=== PATIENT | female | born 2000 | race African-American/Black ===

== ENCOUNTER 2019-05-27 20:15 | Emergency (ER) | payer BC ==
[2019-05-27 20:59] VITALS: BP 130/90; PULSE 90; TEMP 98.9; BMI 23.8
[2019-05-27 20:59] LABS: HCG,QUALITATIVE URINE Negative
[2019-05-27] MEDS ORDERED: SODIUM CHLORIDE 1,000 ML IV ONE (20:59)
[2019-05-27] MEDS ORDERED: ONDANSETRON 4 MG/2 ML VIAL IVPB ONE (20:59)
--- NOTE | 2019-05-27 21:28 | PDOC ---
Documentation entered by Paco Montes SCRIBE, acting as scribe for Cassie Clark MD. Cassie Clark MD: This documentation has been prepared by the Simon bhandari Xhesika, SCRIBE, under my direction and personally reviewed by me in its entirety. I confirm that the documentation accurately reflects all work, treatment, procedures, and medical decision making performed by me. History of Present Illness - General Chief Complaint: Nausea Stated Complaint: NAUSEA History Source: Patient Exam Limitations: No Limitations - History of Present Illness Initial Comments: 05/27/19 21:10 The patient is a 18 year old female, with no significant PMH of who presents to the emergency department with 6 days of nausea and vomiting associated with diffuse epigastric pain, cold sweats, lightheadedness, and inability to tolerate PO. Patient states she went to urgent care and was advised to come to the ED for further evaluations, patients states she has been producing urine 6x per day. Patient denies fevers, chills, chest pain, SOB, or urinary symptoms. PAST SURGICAL HISTORY: no significant history FAMILY HISTORY: no pertinent history SOCIAL HISTORY: Pt lives with family and is employed. MEDICATIONS: reviewed ALLERGIES: As per nursing notes 05/27/19 21:26 Assessment plan: This is a 18-year-old female who comes in saying she is had 6 days of nausea and vomiting and no by mouth intake. However patient said she has been urinating multiple times a day and the urine is normal. Patient here in the ED does not appear to be severely dehydrated or even mildly dehydrated. As evidenced by a normal heart rate and blood pressure. Workup initiated including CBC, comp and lipase Patient given Zofran and IV fluids 05/27/19 21:52 Reevaluation patient feels better with IV fluids. Patient has normal white count and normal chemistries. Patient has normal vitals and will be discharged. Prescription for Zofran sent to her pharmacy. Past History - Past Medical History Allergies/Adverse Reactions: Allergies Allergy/AdvReac Type Severity Reaction Status Date / Time Penicillins Allergy Unknown Verified 05/27/19 20:46 Home Medications: Ambulatory Orders NK [No Known Home Medication] 05/27/19 Review of Systems - Review of Systems Able to Perform ROS?: Yes Comments:: 05/27/19 21:10 General: No fevers or chills, no weakness, no weight loss. (+) cold sweats. HEENT: No change in vision. No sore throat,. No ear pain CardioVascular: No chest pain or shortness of breath Respiratory:No cough, or wheezing. Gastrointestinal: (+) nausea, vomiting. No diarrhea or constipation, No rectal bleeding Genitourinary: No dysuria, hematuria, or frequency Musculoskeletal: (+) epigastric pain. No joint or muscle pain or swelling Neurologic: (+) lightheadedness. No headache, vertigo, dizziness or loss of consciousness Psychiatric: nor depression Skin: No rashes or easy bruising Endocrine: no increased thirst or abnormal weight change Allergic: no skin or latex allergy All other systems reviewed and normal *Physical Exam - Vital Signs Last Vital Signs Temp Pulse Resp BP Pulse Ox 98.9 F 90 15 130/90 100 05/27/19 20:43 05/27/19 20:43 05/27/19 20:43 05/27/19 20:43 05/27/19 20:43 - Physical Exam Comments: 05/27/19 21:10 : General: Well-nourished well-developed individual, no acute distress HEENT: Throat: Normal, tonsils normal, no erythema or exudate Neck: Supple, no meningeal signs, no lymphadenopathy Eyes::Pupils equal reactive and round, extraocular motion intact Chest: Nontender to palpation Cardiac: S1-S2 normal, regular rate and rhythm, no murmurs rubs or gallops Respiratory: Lungs clear to auscultation bilateral Abdomen: (+) mild epigastric tenderness. Soft, nondistended, normal bowel sounds Extremities: Warm, dry, no cyanosis, clubbing, or edema Skin: No rashes Neuro: Alert and oriented x3, nonfocal exam, grossly intact, normal gait Psych: Normal mood and affect ED Treatment Course - LABORATORY CBC & Chemistry Diagram: 05/27/19 21:30 05/27/19 21:30 - ADDITIONAL ORDERS Additional order review: Laboratory Results 05/27/19 20:50 Urine Color Yellow Urine Appearance Slightly Urine pH 6.5 Urine Protein Negative Urine Glucose (UA) Negative Urine Ketones Negative Urine Blood Negative Urine Nitrite Negative Urine Bilirubin Negative Urine Urobilinogen 0.2 Ur Leukocyte Esterase Negative Urine HCG, Qual Negative *DC/Admit/Observation/Transfer Diagnosis at time of Disposition: Nausea & vomiting Qualifiers: Vomiting type: unspecified Vomiting Intractability: non-intractable Qualified Code(s): R11.2 - Nausea with vomiting, unspecified - Discharge Dispostion Disposition: HOME Condition at time of disposition: Good Decision to Admit order: No - Referrals - Patient Instructions Additional Instructions: For nausea take Zofran 1 tablet as often as every 6-8 hours. In addition to that for the discomfort takes an antacid such as Tums or Pepcid. Return to the emergency department immediately with ANY new, persistent or worsening symptoms. Continue any medications as previously prescribed by your physician. You should follow up with your primary doctor as soon as possible regarding today's emergency department visit. . Please make sure your doctor reviews the results of your emergency evaluation. Thank you for coming to the Emergency Department today for your care. It was a pleasure to see you today. Please note that your evaluation is INCOMPLETE until you follow-up with your doctor. - Post Discharge Activity
[2019-05-27] MEDS ORDERED: ONDANSETRON 4 MG/2 ML VIAL ONE (21:30)
[2019-05-27 21:44] LABS: BASO % 1.3 % (0-2.0); EOS % 2.2 % (0-4.5); HEMATOCRIT 41.3 % (32.4-45.2); HEMOGLOBIN 13.4 GM/dl (10.7-15.3); LYMPH % 36.2 % (8-40); MCH 28.3 pg (25.7-33.7); MCHC 32.4 g/dl (32.0-36.0); MEAN CELL VOLUME 87.2 fl (80-96); MEAN PLT VOLUME 8.3 fl (7.5-11.1); MONO % 8.8 % (3.8-10.2); NEUT % 51.5 % (42.8-82.8); PLATELET COUNT 250 K/MM3 (134-434); RBC 4.74 M/mm3 (3.60-5.2); RDW 13.4 % (11.6-15.6); WHITE BLOOD COUNT 6.8 K/mm3 (4.0-10.8)
[2019-05-27 21:56] LABS: ALBUMIN 4.6 g/dl (3.4-5.0); BILIRUBIN,TOTAL 0.8 mg/dl (0.2-1); CALCIUM 9.5 mg/dl (8.5-10); CREATININE 1.1 mg/dl (0.55-1.3); POTASSIUM 4.3 mmol/L (3.5-5.1); TOT PROT 8.2 g/dl (6.4-8.2)
[2019-05-27] MEDS ORDERED: FAMOTIDINE 20 MG/50 ML IVPB 20 MG/50 ML MG IVPB ONE (22:01)
[2019-05-27] MEDS ORDERED: FAMOTIDINE 20 MG TABLET ONE (22:08)
[2019-05-27] MEDS ORDERED: FAMOTIDINE 20 MG TABLET PO ONE (22:08)
== END 2019-05-27 22:18 | disposition home or self-care (01) ==
LOC: FER 20:15
PROC: 3E033GC Introduction of Other Therapeutic Substance into Peripheral Vein, Percutaneous Approach (ICD-10-PCS; principal; 2019-05-27)
PROC: 3E0337Z Introduction of Electrolytic and Water Balance Substance into Peripheral Vein, Percutaneous Approach (ICD-10-PCS; 2019-05-27)
DX: R11.2 Nausea with vomiting, unspecified (principal); Z88.0 Allergy status to penicillin
CPT/HCPCS: 36415; 80053; 81003; 83690; 84703; 85025; 99283-25; J7030